=== PATIENT | male | born 1955 | race Caucasian/White ===

== ENCOUNTER 2019-07-31 10:12 | Outpatient (CLI) | payer MEDICARE, BC ==
[2019-07-31 13:15] LABS: Hemoglobin 16.7 g/dL (14.0-18.0); Mean Corpuscular HGB CONC 34.7 g/dL (32.0-36.0); Mean Corpuscular Volume 98.2 fL (78.0-98.0); Platelet Count 219 thou/uL (130-400); RBC Distribution Width 11.5 % (11.5-14.5); Red Blood Cell (RBC) Count 4.91 mill/uL (4.70-6.10); White Blood Cell (WBC) Count 4.8 thou/uL (4.8-10.8)
[2019-07-31 13:24] LABS: Prothrombin Time 12.9 SEC (12.0-14.7)
[2019-07-31 13:34] LABS: Anion Gap 13 mmol/L (10-20); BUN (Urea Nitrogen) 13 mg/dL (8.4-25.7); Calc. Creatinine Clearance 0 mL/min (70-130); Calcium 9.3 mg/dL (7.8-10.44); Carbon Dioxide 25 mmol/L (23-31); Chloride 102 mmol/L (98-107); Estimated GFR-MDRD 74; Glucose 291 mg/dL (80-115); Potassium 4.3 mmol/L (3.5-5.1); Sodium 136 mmol/L (136-145)
--- NOTE | 2019-08-01 23:23 | EKG ---
Test Reason : Blood Pressure : / mmHG Vent. Rate : 076 BPM Atrial Rate : 076 BPM P-R Int : 160 ms QRS Dur : 122 ms QT Int : 414 ms P-R-T Axes : 044 -74 033 degrees QTc Int : 465 ms Normal sinus rhythm Right bundle branch block Left anterior fascicular block Bifascicular block Septal infarct , age undetermined Abnormal ECG No previous ECGs available Confirmed by Hilaria HOWARD ([id number]) on 08/01/2019 11:23:43 PM Referred By: SHERRIE Confirmed By:Hilaria HOWARD
== END 2019-07-31 10:13 | disposition home or self-care (01) ==
LOC: LABBT 10:12
PROVIDERS: ATTEND Orthopaedic Surgery Hand Surgery
DX: Z01.818 Encounter for other preprocedural examination (principal); M20.012 Mallet finger of left finger(s)
CPT/HCPCS: 80048; 85027; 85610; 93005; 93010

== ENCOUNTER 2019-08-19 11:51 | Day surgery (SDC) | payer MEDICARE, BC ==
[2019-08-19] MEDS ORDERED: Fentanyl 100 MCG/2 ML VIAL ONE (12:32)
[2019-08-19] MEDS ORDERED: Betamet Acet/Betamet Na Ph 30 MG/5 ML VIAL ONE (13:19)
[2019-08-19] MEDS ORDERED: Bacitracin Zinc Ointment 30 gm TUBE ONE (13:19)
[2019-08-19] MEDS ORDERED: Bupivacaine PF 0.5% 30 ML VIAL ONE (13:19)
[2019-08-19] MEDS ORDERED: Bupivacaine HCl 0.5%/Epinephrine 1:200,000/PF 30 ml Vial ONE (13:19)
--- NOTE | 2019-08-19 15:12 | RAD ---
Intraoperative radiographs of the left fourth finger: 08/19/2019 COMPARISON: None HISTORY: Intraoperative pinning FINDINGS: Frontal and lateral imaging of the distal aspect of the fourth finger demonstrate a percuta neous pin traversing the distal interphalangeal joint. IMPRESSION: Intraoperative imaging as above.
--- NOTE | 2019-08-20 12:57 | OP ---
DATE OF PROCEDURE: 08/19/2019 PREOPERATIVE DIAGNOSIS: Left ring finger extensor tendon injury. POSTOPERATIVE DIAGNOSES AND FINDINGS: Left extensor tendon stretch with a 2 mm redundant area on the extensor tendon over the distal interphalangeal joint, left ring finger. PROCEDURES PERFORMED: 1. Tenotomy tendon zone 1, left ring finger. 2. Joint pinning, distal interphalangeal joint under C-arm supervision, left ring finger DIPJ. 3. Extensor zone 1 repair. TOURNIQUET TIME: 30 minutes. BLOOD LOSS: 5 mL. DESCRIPTION OF PROCEDURE: After successful general endotracheal anesthesia, the limb was prepped and draped. The patient had time-out done appropriately. We gave the patient 20 mL of 0.5% Marcaine block, waited 5 minutes, exsanguinated the limb, and inflated the tourniquet to 250 mmHg pressure. J type incision was made centered with a transverse limb over distal interphalangeal joint and we carefully dissected the dermis and epidermis off the extensor mechanism. The redundant area was seen that was thinned in the center along with the radial and ulnar edge thickened consistent with extensor tendon stretch beyond its elastic limit and ability to repair. We resected the 2 mm section, irrigated the joint. We then waited for C-arm to become available during this time. After C-arm was available, we placed a K-wire in the frontal and sagittal plane with adequate fixation to hold the joint still in +5 degrees of extension. We cut the wire below the skin. Then, we placed 5 [id number] 4-0 sutures across the extensor tendon tenotomy area and this reapproximated the tendon in excellent fashion. It was a buried suture. We then released the tourniquet, obtained hemostasis, closed the wound with interrupted 4-0 nylon in a simple pattern. Bulky dressing was applied along with a palmar splint. The patient left the operating room without evidence of anesthetic or operative complication. Job ID: [id number]
== END 2019-08-19 17:05 | disposition home or self-care (01) ==
LOC: SDC 11:51
PROVIDERS: ATTEND Orthopaedic Surgery Hand Surgery
PROC: 0LQ80ZZ Repair Left Hand Tendon, Open Approach (ICD-10-PCS; principal; 2019-08-19)
DX: M20.012 Mallet finger of left finger(s) (principal); I10 Essential (primary) hypertension; E11.9 Type 2 diabetes mellitus without complications; Z79.4 Long term (current) use of insulin; Z79.899 Other long term (current) drug therapy; Z88.8 Allergy status to other drugs, medicaments and biological substances; X50.1XXA Overexertion from prolonged static or awkward postures, initial encounter
CPT/HCPCS: 36416; 76000; J0670; J0690; J0702; J3010; S0020

== ENCOUNTER 2022-06-07 11:27 | Outpatient (CLI) | payer MEDICARE | END 2022-06-07 11:28 | disposition home or self-care (01) | LOC: EEG 11:27 | PROVIDERS: ATTEND Psychiatry & Neurology Neurology | DX: G31.84 Mild cognitive impairment of uncertain or unknown etiology (principal) | CPT/HCPCS: 70551; 95816; 95957 ==